=== PATIENT | male | born 1980 | race Hispanic/Latino ===

== ENCOUNTER 2018-12-08 22:38 | Observation (INO) | payer SELFPAY ==
[2018-12-08] MEDS ORDERED: Aspirin Chewable 81 MG TAB ONE ×2 (22:49)
[2018-12-08] MEDS ORDERED: Nitroglycerin 50 MG/250 ML BOT 0 ML ONE (22:56)
[2018-12-08] MEDS ORDERED: Nitroglycerin 2% Ointment 1 INCH/1 GM Packet ONE (22:57)
--- NOTE | 2018-12-08 23:09 | RAD ---
Chest one view HISTORY: Chest pain. Dyspnea. FINDINGS: Cardiac silhouette is magnified by projection. Pulmonary vasculature is unremarkable. Media stinum is midline. No lobar consolidation or evidence of pneumothorax. library monitor leads overlie the chest. IMPRESSION: No active cardiopulmonary abnormalities are demonstrated.
[2018-12-08 23:22] LABS: #Eosinphils 0.1 thou/uL (0.0-0.7); #Lymphocytes 3.2 thou/uL (1.20-3.40); #Monocytes 1.1 thou/uL (0.11-0.59); #Neutrophils 7.2 thou/uL (1.40-6.50); %Basophils 0.3 % (0.0-1.0); %Eosinophils 0.8 % (0.0-10.0); %Lymphocytes 27.3 % (21.0-51.0); %Monocytes 9.7 % (0.0-10.0); %Neutrophils 61.8 % (42.0-75.0); Hemoglobin 15.1 g/dL (14.0-18.0); Mean Corpuscular HGB CONC 35.2 g/dL (32.0-36.0); Mean Corpuscular Hemoglobin 31.2 pg (27.0-31.0); Mean Corpuscular Volume 88.6 fL (78.0-98.0); Mean Platelet Volume 7.1 fL (7.4-10.4); Platelet Count 327 thou/uL (130-400); RBC Distribution Width 11.6 % (11.5-14.5); Red Blood Cell (RBC) Count 4.83 mill/uL (4.70-6.10); White Blood Cell (WBC) Count 11.6 thou/uL (4.8-10.8)
[2018-12-08 23:45] LABS: ALT (SGPT) 44 U/L (8-55); AST (SGOT) 21 U/L (5-34); Albumin 4.7 g/dL (3.5-5.0); Alkaline Phosphatase 71 U/L (40-150); Anion Gap 14 mmol/L (10-20); BUN (Urea Nitrogen) 20 mg/dL (8.9-20.6); Bilirubin, Total 0.5 mg/dL (0.2-1.2); CK (CPK) 167 U/L (30-200); Calc. Creatinine Clearance 0 mL/min (70-130); Calcium 9.8 mg/dL (7.8-10.44); Carbon Dioxide 25 mmol/L (22-29); Chloride 106 mmol/L (98-107); Estimated GFR-MDRD 86; Globulin 3.2 g/dL (2.4-3.5); Glucose 98 mg/dL (70-105); Lipase 18 U/L (8-78); Potassium 3.4 mmol/L (3.5-5.1); Protein, Total 7.9 g/dL (6.0-8.3); Sodium 142 mmol/L (136-145)
[2018-12-09 01:34] VITALS: BMI 33.0
[2018-12-09] MEDS ORDERED: Acetaminophen 325 MG TAB PO PRN (01:37)
[2018-12-09 01:39] LABS: Troponin I Less than 0.010 ng/mL (< 0.028)
[2018-12-09 06:19] LABS: Cardiac Risk 4.7 (Less than 4.5)
[2018-12-09 06:24] LABS: Troponin I Less than 0.010 ng/mL (< 0.028)
[2018-12-09] MEDS ORDERED: Aspirin 325 MG TAB PO SCH (09:00)
[2018-12-09] MEDS ORDERED: Aspirin 325 mg Enteric Coated Tablet PO SCH (09:00)
[2018-12-09] MEDS ORDERED: Lisinopril 20 MG TAB PO SCH (09:00)
[2018-12-09] MEDS ORDERED: ADENOSINE 60 MG/20 ML VIAL ONE (10:18)
[2018-12-09] MEDS ORDERED: Famotidine/PF 20 mg/2ml Vial SLOW IVP SCH (10:30)
[2018-12-09] MEDS ORDERED: diphenhydrAMINE 50 MG/ML VIAL IVP SCH (10:30)
[2018-12-09] MEDS ORDERED: methylPREDNISolone Sod Succ 40 MG VIAL IVP SCH (10:30)
[2018-12-09] MEDS ORDERED: ISOVUE-370 76%-LOCM 1 ML ONE (11:56)
[2018-12-09] MEDS ORDERED: Potassium Chloride 20 MEQ TAB PO SCH (12:45)
--- NOTE | 2018-12-09 14:18 | NM ---
CARDIAC SPECT: CLINICAL HISTORY: 38-year-old male with chest pain, hypertension, dyspnea, smoker. TECHNIQUE: A myocardial perfusion scan was performed using the single isotope one day protocol with technetium-9 9m sestamibi. 10 mCi were injected intravenously for the rest exam followed by 29 mCi for the stress exam. Pharmacologic stress with Adenosine was monitored and interpreted by Farzana Garcia NP. FINDINGS: Homogeneous tracer distribution is seen in the myocardial segments on stress and rest images without fixed or reversible defects. GATED SPECT LVEF: 72%. WALL MOTION EXAM: Normal. IMPRESSION: Normal myocardial perfusion scan. POS: SUZETTE
[2018-12-09 14:37] LABS: Amphetamine Not Detected (NotDetected); Barbiturates Screen Not Detected (NotDetected); Benzodiazepine Screen Not Detected (NotDetected); Cocaine Metabolite Screen Not Detected (NotDetected); Medtox Control Line Valid? VALID (VALID); Medtox Reader # READER 4; Methadone Not Detected (NotDetected); Methamphetamine Not Detected (NotDetected); Opiate Screen Not Detected (NotDetected); Oxycodone Screen Not Detected (NotDetected); Phencyclidine (PCP) Not Detected (NotDetected); THC/Cannabinoid Screen Not Detected (NotDetected); Tricyclic Screen Not Detected (NotDetected)
--- NOTE | 2018-12-09 15:25 | CT ---
CTA Angio Chest W WO Con 12/09/2018 2:33 PM Indication: Chest pain and shortness of breath Technique: Multiple CTA images were obtained of the thorax with IV contrast. 3D reformatted images were constructed from the raw data. Comparison: None Findings: Pulmonary arteries: The timing of the contrast bolus slightly limits interrogation of the distal pul monary arteries. No definite central pulmonary embolus is evident. Heart and Great Vessels: Normal appearing. Lungs:The lungs are clear. Pleural space: Clear. Upper Abdomen: There is diffuse fatty liver. Adrenal glands are normal appearing. Osseous Structures: There is scattered degenerative and osteoarthritic change present. Impression: 1. No definite central pulmonary embolus evident within limitations exam. 2. Fatty liver
--- NOTE | 2018-12-09 15:34 | HP ---
PRIMARY CARE PROVIDER: Kendra Donis in [place], [place]. CHIEF COMPLAINT: Chest pain. HISTORY OF PRESENT ILLNESS: Mr. Larry is a pleasant 38-year-old gentleman, who was seen at [facility] on December 09, 2018 for chest pain. He reports that over the last 2 weeks he has had on and off chest pain. He was seen by primary care provider. His chest pain was attributed to stress at work. He started having chest pain last night again. He describes it as retrosternal, sharp, radiating to left shoulder, not accompanied by nausea, vomiting, lightheadedness, or shortness of breath. He rates that his pain was 6/10 at its worst. REVIEW OF SYSTEMS: All other systems reviewed and found to be negative. PAST MEDICAL HISTORY: Dyslipidemia and hypertension. PAST SURGICAL HISTORY: None. SOCIAL HISTORY: The patient reports occasional alcohol use and he smokes 3 cigarettes a day. He uses cocaine, last use was 1 month ago. FAMILY HISTORY: No family history of premature coronary artery disease. His mother had seizure. ALLERGIES: NO KNOWN DRUG ALLERGIES. CURRENT MEDICATIONS: 1. Lisinopril 20 mg daily. 2. Pravastatin 10 mg at bedtime. PHYSICAL EXAMINATION: GENERAL: On examination, Mr. Larry is awake and alert, not in acute distress. VITAL SIGNS: Blood pressure is 124/78, pulse 68, respiratory rate 15, and oxygen saturation 97% on room air. He is afebrile. EYES: No scleral icterus. No conjunctival pallor. ENT: Moist mucosal membranes. No oropharyngeal erythema or exudates. NECK: Supple, nontender, trachea is midline. RESPIRATORY: Accessory muscles of breathing are not active. Chest wall movements are symmetric bilaterally. LUNGS: Clear to auscultation without wheeze, rhonchi, or crepitations. CARDIOVASCULAR: S1 and S2 are heard, regular. Peripheral pulses palpable. No carotid bruit. No pericardial rub. ABDOMEN: Soft, nontender, bowel sounds heard. No hepatomegaly, no splenomegaly. NEUROLOGIC: Cranial nerves 2 through 12 intact, deep tendon reflexes 2+. MUSCULOSKELETAL: Power is 5/5 in all 4 extremities. SKIN: No rashes or subcutaneous nodules. LYMPHATIC: No cervical lymphadenopathy. PSYCHIATRIC: Normal mood. Normal affect. The patient is oriented to person, place, and time. LABORATORY DATA: Mr. Larry's labs and investigations were reviewed. I reviewed his electrocardiogram, which shows normal sinus rhythm, no ST changes to suggest acute coronary syndrome. I also reviewed his chest x-ray, which does not show any pulmonary infiltrates. He has leukocytosis with 11,600 white cells, of which 61.8% are neutrophils. Hemoglobin and platelet counts are normal. Troponin I is negative x3. Potassium is mildly decreased at 3.4, otherwise comprehensive metabolic profile is unremarkable. Lipase is normal. BNP is less than 10. Fasting lipid profile shows triglycerides 129, cholesterol 165, LDL cholesterol 104, and HDL cholesterol 35. ASSESSMENT AND PLAN: Mr. Larry is a pleasant 38-year-old gentleman, who was seen at [facility] on December 09, 2018. His problem list includes: 1. Chest pain: Etiology is unclear, the patient will be admitted to the hospital for further management including telemetry monitoring and nuclear stress test. Further management depending on outcome of the test. 2. Dyslipidemia: Continue statin. 3. Hypertension: Continue home medications, monitor vital signs and titrate antihypertensives as needed. 4. Hypokalemia: Replace potassium. Many thanks for allowing me to participate in your patient's care. Please feel free to contact me with any questions or concerns. LEVEL OF RISK: High. LEVEL OF COMPLEXITY: High. Job ID: [id number]
[2018-12-09 15:41] VITALS: BP 136/81; TEMP 98
--- NOTE | 2018-12-09 18:02 | DIS ---
DATE OF ADMISSION: 12/09/2018 DATE OF DISCHARGE: 12/09/2018 PRIMARY CARE PROVIDER: Kendra Donis in [place], [place]. DISCHARGE DIAGNOSES: 1. Chest pain. 2. Chest pain most likely secondary to musculoskeletal etiology. 3. Angioedema. DISCHARGE MEDICATIONS: 1. Pravastatin 10 mg at bedtime. 2. Lisinopril has been discontinued. 3. I am giving him a prescription for amlodipine 5 mg daily, 30 doses. HOSPITAL COURSE: Mr. Larry is a pleasant 38-year-old gentleman, who was admitted to [facility] on December 09, 2018 for chest pain. Please refer to my history and physical note dated December 09, 2018 for further details. He had a nuclear stress test, which was normal myocardial perfusion scan, with left ventricular ejection fraction of 72%. He also had CT angiogram of the chest, which did not show any definite central pulmonary embolus evident within limitations of the exam. He also had fatty liver. While the patient was undergoing stress test, he had swelling of part of his upper lip. It is unclear whether this was caused by lisinopril or by aspirin, which he received during this hospitalization. Lisinopril has been discontinued. He has been started on amlodipine 5 mg daily. He has been advised to check his blood pressure and heart rate 3 times a day and show the readings to his primary care provider. Many thanks for allowing me to participate in your patient's care. Please feel free to contact me with any questions or concerns. DISCHARGE DESTINATION: Home. Job ID: [id number]
[2018-12-09] MEDS ORDERED: Pravastatin Sodium 20 MG TAB PO SCH (21:00)
[2018-12-10] MEDS ORDERED: Amlodipine 5 MG TAB PO SCH (09:00)
== END 2018-12-09 18:10 | disposition home or self-care (01) ==
LOC: ERS 22:38 → 2SW 12-09 01:28
PROVIDERS: ADMIT Internal Medicine; ATTEND Internal Medicine
DX: R07.2 Precordial pain (principal); T78.3XXA Angioneurotic edema, initial encounter; E78.5 Hyperlipidemia, unspecified; I10 Essential (primary) hypertension; E87.6 Hypokalemia; F17.210 Nicotine dependence, cigarettes, uncomplicated; F14.10 Cocaine abuse, uncomplicated; K76.0 Fatty (change of) liver, not elsewhere classified; Z79.899 Other long term (current) drug therapy
CPT/HCPCS: 36415; 71045; 71275; 78452; 80053; 80061; 80306; 82550; 83690; 83735; 83880; 84484; 85025; 90471; 90732; 93005; 93017; 94760; 96360; 96361; 96374; 96375; A9500; G0009; G0378; J0153; J1200; J2920; Q9966; S0028